=== PATIENT | male | born 1940 | race Caucasian/White ===

== ENCOUNTER 2024-02-13 21:58 | Inpatient (IN) | payer MEDICARE ==
[2024-02-13] MEDS ORDERED: Ondansetron PF 4 MG/2 ML Vial ONE ×2 (22:07→23:31)
[2024-02-13] MEDS ORDERED: Morphine 4 MG/ML VIAL ONE (22:07)
[2024-02-13] MEDS ORDERED: Albumin 5% 500 ML ONE (22:21)
[2024-02-13] MEDS ORDERED: Vasopressin 20 UNITS/ML VIAL ONE (22:21)
[2024-02-13] MEDS ORDERED: Etomidate 40 MG (20 mL) VIAL ONE (22:22)
[2024-02-13] MEDS ORDERED: PROPOFOL 20 ML ONE (22:27)
[2024-02-13] MEDS ORDERED: fentaNYL PF 100 MCG/2 ML SYRINGE ONE (22:32)
[2024-02-13] MEDS ORDERED: Rocuronium Bromide 10 MG/ML (10ML VIAL) ONE (22:32)
[2024-02-13] MEDS ORDERED: SUCCINYLCHOLINE/SOD CL,ISO/PF 200 MG/10 ML SYRINGE FS ONE (22:32)
[2024-02-13] MEDS ORDERED: MINERAL OIL/WHITE PETROLATUM 3.5 GM TUBE ONE (22:53)
[2024-02-13] MEDS ORDERED: PHENYLEPHRINE-NS 100 MCG/ML 10 ML SYRINGE ONE (23:08)
[2024-02-13] MEDS ORDERED: Ondansetron PF 4 MG/2 ML Vial IVP PRN (23:10)
[2024-02-13] MEDS ORDERED: Morphine 4 MG/ML VIAL SLOW IVP PRN (23:10)
[2024-02-13] MEDS ORDERED: Ipratropium/Albuterol 3 ML NEB NEB PRN (23:10)
[2024-02-13] MEDS ORDERED: Promethazine HCl 25 MG/ML VIAL IM PRN (23:10)
[2024-02-13] MEDS ORDERED: hydrALAZINE 20 MG/ML VIAL SLOW IVP PRN (23:10)
[2024-02-13] MEDS ORDERED: Morphine 2 MG/ML VIAL SLOW IVP PRN (23:10)
[2024-02-13] MEDS ORDERED: Calcium Chloride 1 GM/10 ML Abboject SYRINGE ONE (23:19)
[2024-02-13] MEDS ORDERED: SUGAMMADEX SODIUM 200 MG/2 ML VIAL ONE (23:32)
[2024-02-13] MEDS ORDERED: Lactated Ringer's 1,000 ML IV SCH (23:45)
[2024-02-13] MEDS ORDERED: Ketorolac Tromethamine 30 MG (1 mL) VIAL IVP SCH (23:59)
[2024-02-14] MEDS ORDERED: fentaNYL 50 mcg/mL 1 mL Vial ONE ×2 (01:00→01:26)
[2024-02-14 02:10] LABS: Hematocrit 32.4 % (42.0-52.0); Hemoglobin 10.2 g/dL (14.0-18.0); Lactic Acid 4.15 mmol/L (0.5-2.2); Mean Corpuscular HGB CONC 31.5 g/dL (32.0-36.0); Mean Corpuscular Hemoglobin 28.3 pg (27.0-31.0); Mean Corpuscular Volume 89.8 fL (78.0-98.0); Mean Platelet Volume 9.6 fL (7.4-10.4); Platelet Count 412 10x3/uL (130-400); RBC Distribution Width 14.4 % (11.5-14.5); Red Blood Cell (RBC) Count 3.61 mill/uL (4.70-6.10)
[2024-02-14 02:41] LABS: Anion Gap 20 mmol/L (10-20); BUN (Urea Nitrogen) 31 mg/dL (8.4-25.7); Calc. Creatinine Clearance 0 mL/min (70-130); Calcium 10.3 mg/dL (7.8-10.44); Carbon Dioxide 14 mmol/L (23-31); Chloride 109 mmol/L (98-107); Estimated GFR 21; Glucose 89 mg/dL (83-110); Potassium 4.6 mmol/L (3.5-5.1); Sodium 138 mmol/L (136-145)
[2024-02-14 02:52] LABS: Anisocytosis SLIGHT = 6-15 cells HPF (0-5); Band 51 % (5-11); Burr Cells SLIGHT = 2-5 cells HPF (0-1); Large Platelets 0.9 % (0-5); Lymphocytes 6 % (21-51); Metamyelocyte 17 % (0-0); Monocytes 9 % (0-10); Myelocyte 2 % (0-0); Neutrophil 14 % (42-75); Platelet Adequacy Comment Platelets Normal; Polychromasia SLIGHT = 2-3 cells HPF (0-2); Reactive Lymphocytes 1 % (0-10); Smudge Cells 4.4 %
[2024-02-14] MEDS: Sodium Chloride 0.9% 1,000 ML IV SCH (02:57)
[2024-02-14] MEDS: Lactated Ringer's 1,000 ML IV SCH ×2 (02:57→18:02)
[2024-02-14 03:19] LABS: Lactic Acid 3.51 mmol/L (0.5-2.2)
[2024-02-14 03:26] VITALS: BMI 20.3
[2024-02-14] MEDS: Piperacillin/Tazobactam 3.375 GM in Sodium Chloride 0.9% 100 ML IVPB SCH (05:36)
[2024-02-14 05:55] LABS: Hematocrit 31.2 % (42.0-52.0); Hemoglobin 9.7 g/dL (14.0-18.0); Mean Corpuscular HGB CONC 31.1 g/dL (32.0-36.0); Mean Corpuscular Hemoglobin 28.4 pg (27.0-31.0); Mean Corpuscular Volume 91.2 fL (78.0-98.0); Mean Platelet Volume 9.4 fL (7.4-10.4); Platelet Count 403 10x3/uL (130-400); RBC Distribution Width 14.6 % (11.5-14.5); Red Blood Cell (RBC) Count 3.42 mill/uL (4.70-6.10)
[2024-02-14 06:19] LABS: Anion Gap 17 mmol/L (10-20); BUN (Urea Nitrogen) 34 mg/dL (8.4-25.7); Calc. Creatinine Clearance 23 mL/min (70-130); Calcium 9.4 mg/dL (7.8-10.44); Carbon Dioxide 15 mmol/L (23-31); Chloride 111 mmol/L (98-107); Estimated GFR 23; Glucose 84 mg/dL (83-110); Sodium 138 mmol/L (136-145)
[2024-02-14 06:47] LABS: Anisocytosis SLIGHT = 6-15 cells HPF (0-5); Band 54 % (5-11); Burr Cells MODERATE= 6-15 cells HPF (0-1); Elliptocytes SLIGHT = 2-5 cells HPF (0-1); Large Platelets 1.9 % (0-5); Lymphocytes 4 % (21-51); Metamyelocyte 7 % (0-0); Monocytes 4 % (0-10); Myelocyte 2 % (0-0); Neutrophil 29 % (42-75); Platelet Adequacy Comment Platelets Normal; Polychromasia SLIGHT = 2-3 cells HPF (0-2); Reactive Lymphocytes 1 % (0-10); Smudge Cells 8.6 %
[2024-02-14] MEDS: Sodium Chloride 0.9% 500 ML IV SCH (07:41)
[2024-02-14] MEDS: Pantoprazole 40 MG VIAL IVP SCH (07:41)
[2024-02-14] MEDS ORDERED: Sodium Chloride 0.9% 1,000 ML IV SCH (09:00)
[2024-02-14] MEDS: Sodium Bicarbonate 150 MEQ in Dextrose 5% in Water 1,000 ML IV SCH (09:41)
[2024-02-14 10:09] LABS: Lactic Acid 1.49 mmol/L (0.5-2.2)
[2024-02-15 04:41] LABS: Anion Gap 12 mmol/L (10-20); BUN (Urea Nitrogen) 34 mg/dL (8.4-25.7); Calc. Creatinine Clearance 27 mL/min (70-130); Calcium 8.7 mg/dL (7.8-10.44); Carbon Dioxide 22 mmol/L (23-31); Chloride 109 mmol/L (98-107); Estimated GFR 28; Glucose 89 mg/dL (83-110); Magnesium 1.7 mg/dL (1.6-2.6); Potassium 3.4 mmol/L (3.5-5.1); Sodium 140 mmol/L (136-145)
[2024-02-15 04:42] LABS: Hematocrit 27.9 % (42.0-52.0); Mean Corpuscular HGB CONC 32.3 g/dL (32.0-36.0); Mean Corpuscular Volume 86.6 fL (78.0-98.0); Mean Platelet Volume 9.8 fL (7.4-10.4); Platelet Count 381 10x3/uL (130-400); RBC Distribution Width 14.3 % (11.5-14.5); Red Blood Cell (RBC) Count 3.22 mill/uL (4.70-6.10)
[2024-02-15 05:09] LABS: Band 67 % (5-11); Hypochromia SLIGHT = 6-15 cells HPF (0-5); Lymphocytes 5 % (21-51); Metamyelocyte 1 % (0-0); Monocytes 2 % (0-10); Neutrophil 25 % (42-75); Nucleated RBC (Manual Ct) 1 % (0); Platelet Adequacy Comment Platelets Normal; Polychromasia SLIGHT = 2-3 cells HPF (0-2)
[2024-02-15] MEDS ORDERED: Electrolyte Replacement Protocol 1 EACH FS SCH (08:00)
[2024-02-15] MEDS ORDERED: Electrolyte Replacement Protocol FS PRN (08:15)
[2024-02-15] MEDS ORDERED: Methocarbamol 500 MG TAB PO PRN (09:26)
[2024-02-15] MEDS: Magnesium 2 GM/50 ML(in water) 2 GM in Premix 1 BAG IVPB SCH (09:49)
[2024-02-15] MEDS: Potassium Chloride 20 MEQ in Premix 1 BAG IVPB SCH (09:52)
[2024-02-15] MEDS: Heparin 5,000 UNITS/ML VIAL SC SCH (09:52)
[2024-02-15] MEDS: D5 1/2 NS w/10 mEq KCl 1,000 ML/1,000 ML BAG IV SCH (10:50)
[2024-02-15 11:04] VITALS: BMI 20.5
[2024-02-15] MEDS: Acetaminophen 325 MG TAB PO SCH (12:22)
[2024-02-15 19:26] LABS: Potassium 3.7 mmol/L (3.5-5.1)
[2024-02-16 04:08] LABS: #Basophils Less than 0.03 10x3/uL (0.0-0.2); %Basophils 0.1 % (0.0-1.0); %Eosinophils 0.9 % (0.0-10.0); %Lymphocytes 6.6 % (21.0-51.0); %Monocytes 4.3 % (0.0-10.0); Hematocrit 27.2 % (42.0-52.0); Hemoglobin 8.8 g/dL (14.0-18.0); Mean Corpuscular HGB CONC 32.4 g/dL (32.0-36.0); Mean Corpuscular Hemoglobin 28.3 pg (27.0-31.0); Mean Corpuscular Volume 87.5 fL (78.0-98.0); Mean Platelet Volume 9.6 fL (7.4-10.4); Platelet Count 402 10x3/uL (130-400); RBC Distribution Width 14.4 % (11.5-14.5); Red Blood Cell (RBC) Count 3.11 mill/uL (4.70-6.10)
[2024-02-16 04:23] LABS: Anion Gap 12 mmol/L (10-20); BUN (Urea Nitrogen) 30 mg/dL (8.4-25.7); Calc. Creatinine Clearance 33 mL/min (70-130); Calcium 8.6 mg/dL (7.8-10.44); Carbon Dioxide 21 mmol/L (23-31); Chloride 111 mmol/L (98-107); Estimated GFR 36; Glucose 116 mg/dL (83-110); Phosphorus 2.7 mg/dL (2.3-4.7); Potassium 3.5 mmol/L (3.5-5.1); Sodium 140 mmol/L (136-145)
[2024-02-16] MEDS ORDERED: Potassium Chloride 20 MEQ TAB PO SCH (08:00)
[2024-02-16] MEDS: Potassium Chloride 20 MEQ in Premix 1 BAG IVPB SCH (09:59)
[2024-02-16] MEDS: NACL ISO OSM IVPB SCH (09:59)
[2024-02-16] MEDS: FLUCONAZOLE IVPB SCH (09:59)
[2024-02-16] MEDS: Magnesium 2 GM/50 ML(in water) 2 GM in Premix 1 BAG IVPB SCH (09:59)
[2024-02-16] MEDS: ADMIXTURE FEE IVPB SCH (09:59)
[2024-02-17] MEDS: Piperacillin/Tazobactam 3.375 GM VIAL ONE (03:28)
[2024-02-17 05:12] LABS: #Basophils Less than 0.03 10x3/uL (0.0-0.2); %Basophils 0.1 % (0.0-1.0); %Eosinophils 2.1 % (0.0-10.0); %Lymphocytes 9.5 % (21.0-51.0); %Monocytes 6.7 % (0.0-10.0); %Neutrophils 81.1 % (42.0-75.0); Hematocrit 29.7 % (42.0-52.0); Hemoglobin 9.5 g/dL (14.0-18.0); Mean Corpuscular Hemoglobin 27.9 pg (27.0-31.0); Mean Corpuscular Volume 87.4 fL (78.0-98.0); Platelet Count 375 10x3/uL (130-400); RBC Distribution Width 14.5 % (11.5-14.5)
[2024-02-17] MEDS ORDERED: FLU (Fluad Triv) TS24-25 (65UP)/MF59C/PF 45 MCG/0.5 ML Syringe IM ONE (09:00)
[2024-02-17 09:38] LABS: Anion Gap 10 mmol/L (10-20); BUN (Urea Nitrogen) 21 mg/dL (8.4-25.7); Calc. Creatinine Clearance 42 mL/min (70-130); Calcium 8.1 mg/dL (7.8-10.44); Carbon Dioxide 22 mmol/L (23-31); Chloride 109 mmol/L (98-107); Estimated GFR 47; Glucose 124 mg/dL (83-110); Potassium 3.5 mmol/L (3.5-5.1); Sodium 137 mmol/L (136-145)
[2024-02-17] MEDS: Potassium Chloride 20 MEQ in Premix 1 BAG IVPB SCH (10:52)
[2024-02-17] MEDS: Clindamycin/D5W 900 MG in Premix 1 BAG IVPB SCH (14:02)
[2024-02-18 05:41] LABS: #Basophils Less than 0.03 10x3/uL (0.0-0.2); %Basophils 0.2 % (0.0-1.0); %Eosinophils 3.5 % (0.0-10.0); %Lymphocytes 11.6 % (21.0-51.0); %Monocytes 9.8 % (0.0-10.0); %Neutrophils 73.8 % (42.0-75.0); Hematocrit 27.5 % (42.0-52.0); Hemoglobin 8.8 g/dL (14.0-18.0); Mean Corpuscular Hemoglobin 27.7 pg (27.0-31.0); Mean Corpuscular Volume 86.5 fL (78.0-98.0); Mean Platelet Volume 9.5 fL (7.4-10.4); Platelet Count 336 10x3/uL (130-400); RBC Distribution Width 14.5 % (11.5-14.5); Red Blood Cell (RBC) Count 3.18 mill/uL (4.70-6.10)
[2024-02-18 05:47] LABS: Anion Gap 9 mmol/L (10-20); BUN (Urea Nitrogen) 16 mg/dL (8.4-25.7); Calc. Creatinine Clearance 49 mL/min (70-130); Calcium 8.1 mg/dL (7.8-10.44); Carbon Dioxide 21 mmol/L (23-31); Chloride 107 mmol/L (98-107); Estimated GFR 57; Glucose 111 mg/dL (83-110); Potassium 3.3 mmol/L (3.5-5.1); Sodium 134 mmol/L (136-145)
[2024-02-18] MEDS: Potassium Chloride 20 MEQ TAB PO SCH (08:28)
[2024-02-18] MEDS ORDERED: MD-Gastroview 120 ML BOT ONE (09:16)
[2024-02-18 15:22] VITALS: BP 119/87; TEMP 98
== END 2024-02-18 18:05 | disposition home or self-care (01) | DRG 853 ==
LOC: ERS 21:58 → SDC/OP 23:29 → CCU 02-14 02:15 → 2NO 02-14 08:41 → SURG A 02-16 12:01
PROVIDERS: ADMIT Surgery; ATTEND Surgery
PROC: 0DQ90ZZ Repair Duodenum, Open Approach (ICD-10-PCS; principal; 2024-02-13)
PROC: 0W9G0ZZ Drainage of Peritoneal Cavity, Open Approach (ICD-10-PCS; 2024-02-13)
DX: A41.9 Sepsis, unspecified organism (principal); K25.5 Chronic or unspecified gastric ulcer with perforation; K26.5 Chronic or unspecified duodenal ulcer with perforation; K65.0 Generalized (acute) peritonitis; N17.9 Acute kidney failure, unspecified; E87.20 Acidosis, unspecified; Z90.49 Acquired absence of other specified parts of digestive tract; Z66 Do not resuscitate; Z79.01 Long term (current) use of anticoagulants; Z79.899 Other long term (current) drug therapy; F03.90 Unspecified dementia, unspecified severity, without behavioral disturbance, psychotic disturbance, mood disturbance, and anxiety
CPT/HCPCS: 36415; 36416; 71045; 71275; 74177; 74240; 80048; 80053; 83605; 83735; 83880; 84100; 84484; 85025; 85379; 85610; 85730; 86850; 86900; 86901; 87040; 87070; 87076; 87077; 87149; 87186; 87205; 93005; 96365; 96375; A4314; J1450; J1644; J2272; J2405; J2470; J2543; J2704; J3010; J3370; J3475; J3480; J3490; J7030; J7070; J7120; P9045; Q9963; Q9967